=== PATIENT | female | born 1995 | race Caucasian/White ===

== ENCOUNTER 2017-05-27 19:44 | Emergency (ER) | payer BC ==
[2017-05-27 20:36] LABS: URINE HCG POC HCG NEGATIVE (Negative)
== END 2017-05-27 21:16 | disposition home or self-care (01) ==
LOC: ER 19:44
DX: J32.1 Chronic frontal sinusitis (principal); J32.0 Chronic maxillary sinusitis; H92.03 Otalgia, bilateral; F32.9 Major depressive disorder, single episode, unspecified; Z88.8 Allergy status to other drugs, medicaments and biological substances
CPT/HCPCS: 71046; 81025; 99284-25